=== PATIENT | female | born 1955 | race Caucasian/White ===

== ENCOUNTER 2024-11-15 01:33 | Emergency (ER) | payer MEDICARE ==
[~2024-11-15] VITALS: Ht 162.6 cm; Wt 48.0 kg
[2024-11-15 01:41] VITALS: TEMP 36.6; O2SAT 96
[2024-11-15] MEDS: KETOROLAC 30MG/ML VIAL IM ONE (03:58)
[2024-11-15 06:06] LABS: CLARITY URINE CLOUDY (CLEAR); COLOR URINE DARK YELLOW (YELLOW); GLUCOSE URINE NEGATIVE (NEGATIVE); KETONES URINE TRACE (NEGATIVE); LEUKOCYTE ESTERASE URINE 2+ (NEGATIVE); NITRITE URINE NEGATIVE (NEGATIVE); OCCULT BLOOD URINE 2+ (NEGATIVE); PH URINE 5.5 (4.5-8.0); PROTEIN URINE 1+ (NEGATIVE); SPECIFIC GRAVITY URINE 1.035 (1.005-1.030)
[2024-11-15] MEDS ORDERED: SULF1TAB48 MT (06:55)
[2024-11-15] MEDS ORDERED: PETR5OIN3 TP (06:55)
[2024-11-15] MEDS ORDERED: CEPH500T MT (06:55)
[2024-11-15 06:58] LABS: SQUAMOUS EPITHELIAL CELL URINE FEW /lpf (RARE/1+)
[2024-11-15 06:59] LABS: WBC URINE 15-25 /hpf (0-2)
[2024-11-15 07:00] LABS: RBC URINE 15-25 /hpf (0-2)
[2024-11-15 07:01] LABS: BACTERIA URINE 1+
[2024-11-15 07:10] VITALS: BP 124/79; PULSE 88; RESP 14; O2SAT 97
[2024-11-18 04:08] LABS: CHLAMYDIA TRACHOMATIS NAA Negative (Negative); NEISSERIA GONORRHOEAE NAA Positive (Negative)
== END 2024-11-15 07:16 | disposition home or self-care (01) ==
LOC: ER 01:33
DX: N39.0 Urinary tract infection, site not specified (principal)
CPT/HCPCS: 99284; 87491; 87591; 81003; 87086; 87210; 96372; J1885